=== PATIENT | male | born 1995 | race Caucasian/White ===

== ENCOUNTER 2017-05-24 04:24 | Emergency (ER) | payer MEDICAID ==
[~2017-05-24] VITALS: Ht 185.4 cm; Wt 92.7 kg
[~2017-05-24 04:24] MED LIST: ALBU8.5H8 IH; GUAN1TAB16 PO
[2017-05-24 06:18] LABS: CLARITY,URINE CLEAR (Clear); COLOR,URINE YELLOW (Yellow); GLUCOSE, URINE NEGATIVE (Neg); KETONES,URINE NEGATIVE (Neg); LEUKOCYTE ESTERASE ,URINE NEGATIVE (Neg); NITRITES, URINE NEGATIVE (Neg); OCCULT BLOOD,URINE NEGATIVE (Neg); PH,URINE 5.5 (4.8-8.0); PROTEIN,URINE NEGATIVE (Neg); UROBILINOGEN,URINE 0.2 E.U/dL (0.2-1.0)
[2017-05-24 06:47] LABS: UA COLLECTION TYPE CLN CATCH MIDSTREAM
[2017-05-24 07:02] VITALS: BP 121/68
[2017-05-25] MEDS ORDERED: DOXY100C43 PO (11:07)
== END 2017-05-24 07:03 | disposition home or self-care (01) ==
LOC: ER 04:24
DX: N48.89 Other specified disorders of penis (principal); I10 Essential (primary) hypertension; F12.10 Cannabis abuse, uncomplicated; Z79.899 Other long term (current) drug therapy
CPT/HCPCS: 76870; 81003; 99285

== ENCOUNTER 2017-05-25 10:26 | Emergency (ER) | payer MEDICAID ==
[~2017-05-25] VITALS: Ht 185.4 cm; Wt 100.0 kg
[2017-05-25 10:30] VITALS: BP 138/68
[2017-05-25] MEDS ORDERED: DOXY100C43 PO (11:07)
[2017-05-25] MEDS ORDERED: CefTRIAXone 250MG inj IM ONE (11:10)
[2017-05-25] MEDS ORDERED: CefTRIAXone 250MG IM Kit w/LIDOcaine IM ONE (11:15)
== END 2017-05-25 11:45 | disposition home or self-care (01) ==
LOC: ER 10:26
DX: S30.22XA Contusion of scrotum and testes, initial encounter (principal); N45.1 Epididymitis; I10 Essential (primary) hypertension; F12.10 Cannabis abuse, uncomplicated; X58.XXXA Exposure to other specified factors, initial encounter; Y93.89 Activity, other specified; Y92.89 Other specified places as the place of occurrence of the external cause; Y99.8 Other external cause status
CPT/HCPCS: 76870; 96372; 99284; J0696

== ENCOUNTER 2017-08-29 10:37 | Emergency (ER) | payer MEDICAID ==
[~2017-08-29] VITALS: Ht 185.4 cm; Wt 91.0 kg
[2017-08-29 10:43] VITALS: BP 138/67
[2017-08-29] MEDS ORDERED: azithromycin 250mg tablet PO ONE (11:05)
[2017-08-29] MEDS ORDERED: CefTRIAXone 1000mg IM Kit (w/lidocaine diluent) IM ONE (11:05)
== END 2017-08-29 11:42 | disposition home or self-care (01) ==
LOC: ER 10:37
DX: A64 Unspecified sexually transmitted disease (principal); I10 Essential (primary) hypertension; F12.90 Cannabis use, unspecified, uncomplicated; Z79.899 Other long term (current) drug therapy
CPT/HCPCS: 36415; 87491; 87591; 96372; 99284; J0696; 99283

== ENCOUNTER 2017-10-16 08:53 | Emergency (ER) | payer MEDICAID ==
[~2017-10-16] VITALS: Ht 190.5 cm; Wt 86.0 kg
[2017-10-16 10:18] VITALS: BP 132/70
== END 2017-10-16 10:20 | disposition home or self-care (01) ==
LOC: ER 08:54
DX: R20.2 Paresthesia of skin (principal); R07.89 Other chest pain; R20.0 Anesthesia of skin; I10 Essential (primary) hypertension; F12.90 Cannabis use, unspecified, uncomplicated; F15.90 Other stimulant use, unspecified, uncomplicated; Z79.899 Other long term (current) drug therapy
CPT/HCPCS: 93005; 99283

== ENCOUNTER 2018-02-14 03:26 | Emergency (ER) | payer MEDICAID | END 2018-02-14 03:43 | disposition left against medical advice (07) | LOC: ER 03:27 | DX: Z11.3 Encounter for screening for infections with a predominantly sexual mode of transmission (principal); Z53.21 Procedure and treatment not carried out due to patient leaving prior to being seen by health care provider ==

== ENCOUNTER 2018-10-20 22:44 | Emergency (ER) | payer MEDICAID ==
[~2018-10-20] VITALS: Ht 182.9 cm; Wt 93.2 kg
[2018-10-20 23:41] LABS: BASOPHILS # (AUTO) 0.1 X10'3 (0-0.2); BASOPHILS % (AUTO) 0.9 % (0-1); EOSINOPHILS # (AUTO) 0.3 X10'3 (0-0.9); EOSINOPHILS % (AUTO) 4.1 % (0-6); HEMATOCRIT 40.8 % (42.0-52.0); LYMPHOCYTES # (AUTO) 2.1 X10'3 (1.1-4.8); LYMPHOCYTES % (AUTO) 31.1 % (21-51); MEAN CORPUSCULAR HEMOGLOBIN 32.5 PG (27.0-31.0); MEAN CORPUSCULAR HGB CONC 34.5 g/dL (33.0-36.5); MEAN CORPUSCULAR VOLUME 94.3 FL (78-98); MEAN PLATELET VOLUME 7.1 FL (7.4-10.4); MONOCYTES % (AUTO) 14.6 % (2-12); NEUTROPHILS # (AUTO) 3.3 X10'3 (1.8-7.7); NEUTROPHILS % (AUTO) 49.3 % (42-75); PLATELET COUNT 230 X10'3 (140-440); RED BLOOD COUNT 4.32 X10'6 (4.70-6.10); WHITE BLOOD COUNT 6.7 X10'3 (4.5-11.0)
[2018-10-20 23:42] LABS: CLARITY,URINE CLEAR (Clear); COLOR,URINE YELLOW (Yellow); GLUCOSE, URINE NEGATIVE (Neg); KETONES,URINE TRACE mg/dl (Neg); LEUKOCYTE ESTERASE ,URINE NEGATIVE (Neg); NITRITES, URINE NEGATIVE (Neg); OCCULT BLOOD,URINE NEGATIVE (Neg); PROTEIN,URINE TRACE mg/dl (Neg); UROBILINOGEN,URINE 0.2 E.U/dL (0.2-1.0)
[2018-10-20 23:43] LABS: UA COLLECTION TYPE VOIDED
[2018-10-20 23:48] LABS: RBC,URINE NONE SEEN /HPF (0-2); WBC,URINE 0-4 /HPF (0-4)
[2018-10-20 23:49] LABS: BACTERIA,URINE NONE SEEN /HPF (Neg); HYALINE CASTS 0-3 /LPF (NEGATIVE); MUCUS STRANDS MODERATE /LPF (Neg); SQUAMOUS EPITHELIAL CELL,UR FEW /LPF (FEW); TRANSITIONAL EPI CELLS,URINE FEW /HPF
[2018-10-20 23:58] LABS: ALANINE AMINOTRANSFERASE 28 U/L (12-78); ALBUMIN 3.8 G/DL (3.4-5.0); ALBUMIN/GLOBULIN RATIO 1.2 (1.1-1.5); ALKALINE PHOSPHATASE 106 IU/L (46-116); ANION GAP 5 (8-16); ASPARTATE AMINO TRANSFERASE 15 U/L (10-37); BILIRUBIN,TOTAL 0.3 MG/DL (0.1-1.0); BLOOD UREA NITROGEN 11 MG/DL (7-18); BUN/CREATININE RATIO 10.3 (5.4-32.0); CALCIUM 8.2 MG/DL (8.5-10.1); CHLORIDE 106 MMOL/L (99-107); CREATININE 1.07 MG/DL (0.60-1.10); GLUCOSE 123 MG/DL (70-104); POTASSIUM 3.7 MMOL/L (3.5-5.1); SODIUM 142 MMOL/L (135-145); TOTAL CARBON DIOXIDE 31.1 MMOL/L (24-32); TOTAL PROTEIN 6.9 G/DL (6.4-8.2); eGFR 85 ML/MIN
[2018-10-21 00:21] VITALS: BP 118/62
--- NOTE | 2018-10-21 00:22 | NUR ---
Returned from ct, labs drawn and ua collected. pt with 8 out of 10 pain to periumbilical area. stable vs. girlfriend at bedside.
--- NOTE | 2018-10-21 01:33 | NUR ---
DR. GRIFFITH AT BEDSIDE, REPORTS HE IS WAITING FOR THE CT READ.
== END 2018-10-21 01:54 | disposition home or self-care (01) ==
LOC: ER 22:44
DX: R10.84 Generalized abdominal pain (principal); R19.7 Diarrhea, unspecified; I10 Essential (primary) hypertension; F32.9 Major depressive disorder, single episode, unspecified; F17.200 Nicotine dependence, unspecified, uncomplicated; F10.99 Alcohol use, unspecified with unspecified alcohol-induced disorder; F12.90 Cannabis use, unspecified, uncomplicated; Z79.899 Other long term (current) drug therapy; Y90.9 Presence of alcohol in blood, level not specified
CPT/HCPCS: 36415; 74176; 80053; 81001; 85025; 85610; 99284

== ENCOUNTER 2018-10-27 12:52 | Emergency (ER) | payer MEDICAID ==
[~2018-10-27] VITALS: Ht 182.9 cm; Wt 86.0 kg
[2018-10-27 12:56] VITALS: BP 124/64
== END 2018-10-27 14:49 | disposition home or self-care (01) ==
LOC: ER 12:53
DX: R20.2 Paresthesia of skin (principal); I10 Essential (primary) hypertension; F12.90 Cannabis use, unspecified, uncomplicated; F17.210 Nicotine dependence, cigarettes, uncomplicated
CPT/HCPCS: 99281

== ENCOUNTER 2018-11-09 19:51 | Emergency (ER) | payer MEDICAID ==
[~2018-11-09] VITALS: Ht 182.9 cm; Wt 88.0 kg
[2018-11-09] MEDS ORDERED: HYDR25SU32 RC (21:37)
[2018-11-09] MEDS ORDERED: DOCU-169 PO (21:37)
[2018-11-09 21:39] VITALS: BP 125/85
== END 2018-11-09 21:46 | disposition home or self-care (01) ==
LOC: ER 19:51
DX: K92.2 Gastrointestinal hemorrhage, unspecified (principal); I10 Essential (primary) hypertension; F32.9 Major depressive disorder, single episode, unspecified; F17.200 Nicotine dependence, unspecified, uncomplicated; F12.90 Cannabis use, unspecified, uncomplicated; F11.90 Opioid use, unspecified, uncomplicated; Z79.899 Other long term (current) drug therapy
CPT/HCPCS: 99283

== ENCOUNTER 2019-05-06 07:06 | Emergency (ER) | payer MEDICAID, OTHER ==
[~2019-05-06] VITALS: Ht 185.4 cm; Wt 90.9 kg
[~2019-05-06 07:06] MED LIST changes: +DOCU-169 PO; +HYDR25SU32 RC
[2019-05-06 07:21] VITALS: BP 148/80
[2019-05-06] MEDS ORDERED: LIDOcaine 1% W/epiNEPHrine 1:200,000 10ml vial IJ ONE (07:30)
[2019-05-06] MEDS ORDERED: TETanus/Pertussis (Acell)/Diphther VAC/PF (Tdap-Adult) 0.5ml syringe IMVAC ONE (07:30)
[2019-05-06] MEDS ORDERED: CEPH-572 PO (09:05)
== END 2019-05-06 09:56 | disposition home or self-care (01) ==
LOC: ER 07:08
DX: S61.220A Laceration with foreign body of right index finger without damage to nail, initial encounter (principal); S61.210A Laceration without foreign body of right index finger without damage to nail, initial encounter; I10 Essential (primary) hypertension; F32.9 Major depressive disorder, single episode, unspecified; F12.90 Cannabis use, unspecified, uncomplicated; Z79.2 Long term (current) use of antibiotics; Z79.899 Other long term (current) drug therapy; W26.8XXA Contact with other sharp object(s), not elsewhere classified, initial encounter; Y93.89 Activity, other specified; Y92.89 Other specified places as the place of occurrence of the external cause; Y99.8 Other external cause status
CPT/HCPCS: 12001; 12041; 73130; 99285

== ENCOUNTER 2019-05-20 09:30 | Emergency (ER) | payer MEDICAID, OTHER ==
[~2019-05-20] VITALS: Ht 185.4 cm; Wt 90.9 kg
[2019-05-20 12:03] VITALS: BP 130/79
== END 2019-05-20 12:07 | disposition home or self-care (01) ==
LOC: ER 09:31
DX: S61.220D Laceration with foreign body of right index finger without damage to nail, subsequent encounter (principal); S61.210D Laceration without foreign body of right index finger without damage to nail, subsequent encounter; I10 Essential (primary) hypertension; F32.9 Major depressive disorder, single episode, unspecified; F12.90 Cannabis use, unspecified, uncomplicated; Z79.899 Other long term (current) drug therapy; W26.8XXD Contact with other sharp object(s), not elsewhere classified, subsequent encounter
CPT/HCPCS: 99281

== ENCOUNTER 2019-06-29 07:04 | Emergency (ER) | payer MEDICAID, OTHER ==
[~2019-06-29] VITALS: Ht 185.4 cm; Wt 90.9 kg
[2019-06-29 07:05] VITALS: BP 163/96
== END 2019-06-29 07:34 | disposition home or self-care (01) ==
LOC: ER 07:05
DX: F11.90 Opioid use, unspecified, uncomplicated (principal); I10 Essential (primary) hypertension; F32.9 Major depressive disorder, single episode, unspecified; F12.90 Cannabis use, unspecified, uncomplicated; Z79.899 Other long term (current) drug therapy
CPT/HCPCS: 99281

== ENCOUNTER 2019-08-18 19:30 | Emergency (ER) | payer MEDICAID, OTHER ==
[~2019-08-18] VITALS: Ht 185.4 cm; Wt 201.0 kg
[2019-08-18 19:47] VITALS: BP 146/88
--- NOTE | 2019-08-18 20:02 | NUR ---
He is here for medical clearance to go to a rehab facility and has no medical complaints. He is a heroin user.
== END 2019-08-18 20:12 | disposition home or self-care (01) ==
LOC: ER 19:31
DX: F11.10 Opioid abuse, uncomplicated (principal); Z00.8 Encounter for other general examination
CPT/HCPCS: 99281

== ENCOUNTER 2019-08-22 15:33 | Emergency (ER) | payer MEDICAID, OTHER ==
[~2019-08-22] VITALS: Ht 185.4 cm; Wt 92.0 kg
[2019-08-22 15:41] VITALS: BP 167/96
== END 2019-08-22 16:06 | disposition home or self-care (01) ==
LOC: ER 15:33
DX: F11.90 Opioid use, unspecified, uncomplicated (principal); I10 Essential (primary) hypertension; F32.9 Major depressive disorder, single episode, unspecified; F12.90 Cannabis use, unspecified, uncomplicated; Z00.00 Encounter for general adult medical examination without abnormal findings; Z79.899 Other long term (current) drug therapy
CPT/HCPCS: 99281

== ENCOUNTER 2019-10-25 07:18 | Emergency (ER) | payer OTHER ==
[~2019-10-25] VITALS: Ht 185.4 cm; Wt 90.9 kg
[2019-10-25] MEDS ORDERED: ketorolac trometh. 30mg/ml inj. IV ONE (07:30)
[2019-10-25] MEDS ORDERED: acetaminophen 325mg tablet PO ONE (07:30)
[2019-10-25] MEDS ORDERED: SUMAtriptan succ. 6 MG/0.5ml vial SQ ONE ×2 (07:30→07:34)
[2019-10-25] MEDS ORDERED: proCHLORperazine 10 MG/2 ml inj IV ONE (07:30)
[2019-10-25] MEDS ORDERED: normal saline 1000ml 1,000 ML IV ONE (07:30)
[2019-10-25] MEDS ORDERED: ketorolac tromethamine 15mg/ml inj. ONE (07:34)
[2019-10-25] MEDS ORDERED: proCHLORperazine 10 MG/2 ml inj ONE (07:34)
[2019-10-25] MEDS ORDERED: acetaminophen 325mg tablet ONE (07:34)
[2019-10-25] MEDS ORDERED: ketorolac tromethamine 15mg/ml inj. IV ONE (07:50)
--- NOTE | 2019-10-25 08:30 | NUR ---
SPOKE WITH PT'S GIRLFRIEND, SHE GAVE ME HER HOME NUMBER [phone] TO CALL WHEN PT IS UP FOR D/C.
[2019-10-25 08:43] VITALS: BP 122/79
== END 2019-10-25 09:11 | disposition home or self-care (01) ==
LOC: ER 07:18
DX: R51 Headache (principal); I10 Essential (primary) hypertension; H53.149 Visual discomfort, unspecified; F32.9 Major depressive disorder, single episode, unspecified; F12.90 Cannabis use, unspecified, uncomplicated; F11.90 Opioid use, unspecified, uncomplicated; Z79.899 Other long term (current) drug therapy
CPT/HCPCS: 96361; 96372; 96374; 96375; 99284; J0780; J1885; J7030; J3030

== ENCOUNTER 2020-10-06 03:30 | Emergency (ER) | payer MEDICAID, OTHER ==
[~2020-10-06] VITALS: Ht 185.4 cm; Wt 95.5 kg
[~2020-10-06 03:30] MED LIST changes: +ALBU8.5H17 IH; -ALBU8.5H8 IH
[2020-10-06 04:37] LABS: BASOPHILS # (AUTO) 0.1 X10'3 (0-0.2); EOSINOPHILS # (AUTO) 0.1 X10'3 (0-0.9); HEMOGLOBIN 13.6 g/dl (14.0-17.9); MEAN CORPUSCULAR HEMOGLOBIN 31.3 PG (27.0-31.0); MEAN CORPUSCULAR HGB CONC 33.6 g/dL (33.0-36.5); NEUTROPHILS # (AUTO) 6.6 X10'3 (1.8-7.7); RED CELL DISTRIBUTION WIDTH 14.3 % (11.5-14.5); WHITE BLOOD COUNT 9.2 X10'3 (4.5-11.0)
[2020-10-06 04:39] LABS: BASOPHILS % (AUTO) 0.8 % (0-1); EOSINOPHILS % (AUTO) 1.4 % (0-6); HEMATOCRIT 40.6 % (42.0-52.0); LYMPHOCYTES # (AUTO) 1.2 X10'3 (1.1-4.8); LYMPHOCYTES % (AUTO) 13.3 % (21-51); MEAN CORPUSCULAR VOLUME 93.3 FL (78-98); MEAN PLATELET VOLUME 7.6 FL (7.4-10.4); MONOCYTES # (AUTO) 1.2 X10'3 (0-0.9); MONOCYTES % (AUTO) 13.4 % (2-12); NEUTROPHILS % (AUTO) 71.1 % (42-75); PLATELET COUNT 345 X10'3 (140-440); RED BLOOD COUNT 4.35 X10'6 (4.70-6.10)
[2020-10-06 04:41] LABS: ALBUMIN 3.8 G/DL (3.4-5.0); ANION GAP 6 (8-16); BLOOD UREA NITROGEN 10 MG/DL (7-18); BUN/CREATININE RATIO 10.4 (5.4-32.0); CALCIUM 8.7 MG/DL (8.5-10.1); CHLORIDE 101 MMOL/L (99-107); CREATININE 0.96 MG/DL (0.60-1.10); GLUCOSE 98 MG/DL (70-104); POTASSIUM 3.6 MMOL/L (3.5-5.1); SODIUM 139 MMOL/L (135-145); TOTAL CARBON DIOXIDE 31.8 MMOL/L (24-32); eGFR > 90 ML/MIN
[2020-10-06 04:44] LABS: PARTIAL THROMBOPLASTIN TIME 35 SECONDS (22-32)
[2020-10-06] MEDS ORDERED: CLIN300C54 PO (04:52)
[2020-10-06] MEDS ORDERED: clindamycin 150mg capsule PO ONE (05:05)
[2020-10-06 05:21] VITALS: BP 134/74
== END 2020-10-06 05:22 | disposition home or self-care (01) ==
LOC: ER 03:30
DX: L03.115 Cellulitis of right lower limb (principal); R20.2 Paresthesia of skin; I10 Essential (primary) hypertension; F17.200 Nicotine dependence, unspecified, uncomplicated; Z87.01 Personal history of pneumonia (recurrent); Z79.899 Other long term (current) drug therapy
CPT/HCPCS: 73610; 80048; 85025; 85610; 85730; 93971; 99285

== ENCOUNTER 2022-09-25 22:04 | Inpatient (IN) | payer MEDICAID, OTHER ==
[~2022-09-25] VITALS: Ht 182.9 cm; Wt 88.6 kg
[2022-09-25] MEDS ORDERED: vancomycin/NS 1 GM ADD-VANTAGE 250 ML IV ONE (22:35)
[2022-09-25] MEDS ORDERED: normal saline 1000ML IV soln IVB ONE ×2 (22:35)
[2022-09-25] MEDS ORDERED: piperacillin/tazo 3.375gm/50ml 50 ML IV ONE (22:35)
[2022-09-25] MEDS ORDERED: acetaminophen 325mg tablet PO ONE (22:35)
[2022-09-25] MEDS ORDERED: iohexol 300mg/ml 100ml inj. ONE (22:53)
[2022-09-26 00:28] LABS: BASOPHILS # (AUTO) 0.2 X10'3 (0-0.2); BASOPHILS % (AUTO) 0.5 % (0-1); EOSINOPHILS % (AUTO) 0.1 % (0-6); HEMATOCRIT 37.1 % (42.0-52.0); HEMOGLOBIN 12.4 g/dl (14.0-17.9); LYMPHOCYTES # (AUTO) 1.4 X10'3 (1.1-4.8); LYMPHOCYTES % (AUTO) 3.8 % (21-51); MEAN CORPUSCULAR HEMOGLOBIN 30.5 PG (27.0-31.0); MEAN CORPUSCULAR HGB CONC 33.5 g/dL (33.0-36.5); MEAN CORPUSCULAR VOLUME 90.9 FL (78-98); MEAN PLATELET VOLUME 7.7 FL (7.4-10.4); MONOCYTES # (AUTO) 2.5 X10'3 (0-0.9); MONOCYTES % (AUTO) 6.9 % (2-12); NEUTROPHILS # (AUTO) 32.7 X10'3 (1.8-7.7); NEUTROPHILS % (AUTO) 88.7 % (42-75); PLATELET COUNT 435 X10'3 (140-440); RED BLOOD COUNT 4.08 X10'6 (4.70-6.10); RED CELL DISTRIBUTION WIDTH 13.8 % (11.5-14.5)
[2022-09-26 00:32] LABS: WHITE BLOOD COUNT 36.8 X10'3 (4.5-11.0)
[2022-09-26 01:04] LABS: ALANINE AMINOTRANSFERASE 35 U/L (12-78); ALBUMIN 2.9 G/DL (3.4-5.0); ALBUMIN/GLOBULIN RATIO 0.5 (1.1-1.5); ALKALINE PHOSPHATASE 127 IU/L (46-116); ANION GAP 14 (8-16); ASPARTATE AMINO TRANSFERASE 39 U/L (10-37); BILIRUBIN,TOTAL 0.6 MG/DL (0.1-1.0); BLOOD UREA NITROGEN 21 MG/DL (7-18); BUN/CREATININE RATIO 16.8 (10.0-20.0); CALCIUM 9.4 MG/DL (8.5-10.1); CHLORIDE 94 MMOL/L (99-107); CREATININE 1.25 MG/DL (0.60-1.10); GLUCOSE 106 MG/DL (70-104); POTASSIUM 3.4 MMOL/L (3.5-5.1); SODIUM 134 MMOL/L (135-145); TOTAL CARBON DIOXIDE 26.4 MMOL/L (24-32); eGFR 69 ML/MIN
[2022-09-26] MEDS ORDERED: potassium Cl 20 mEq SR tablet PO PRN ×2 (01:25)
[2022-09-26] MEDS ORDERED: HYDROcodone/acetaminophen 5mg/325mg tablet PO PRN (01:25)
[2022-09-26] MEDS ORDERED: magnesium Cl slow-release 64mg tablet PO PRN (01:25)
[2022-09-26] MEDS ORDERED: potassium Cl 40MEQ/1/2NS 520ml 520 ML IV PRN (01:25)
[2022-09-26] MEDS ORDERED: ondansetron/PF 4mg/2ml inj IV PRN (01:25)
[2022-09-26] MEDS ORDERED: magnesium 2GM in 50ml NS 50 ML IV PRN (01:25)
[2022-09-26] MEDS ORDERED: acetaminophen 325mg tablet PO PRN (01:25)
[2022-09-26] MEDS ORDERED: magnesium 4gm in 100ml NS 100 ML IV PRN (01:25)
[2022-09-26] MEDS ORDERED: morphine 2 MG/ML inj. syringe IV PRN (01:25)
[2022-09-26 01:34] LABS: TOTAL CELLS COUNTED 100
[2022-09-26 01:47] LABS: PLATELET ESTIMATE NORMAL; TOXIC GRANULATION 2+; TOXIC VACUOLATION 1+
[2022-09-26 01:48] LABS: LARGE PLATELETS FEW
[2022-09-26] MEDS: normal saline 1000ml 1,000 ML IV SCH ×3 (02:20→17:12)
[2022-09-26] MEDS ORDERED: vancomycin/NS 1 GM ADD-VANTAGE 250 ML X 1 DOSE IV ONE (02:30)
[2022-09-26 03:15] LABS: MAGNESIUM 2.3 MG/DL (1.5-2.4); POTASSIUM 3.8 MMOL/L (3.5-5.1)
[2022-09-26] MEDS: cefepime 2g/NS 100ml ADVANTAGE 100 ML IV SCH ×2 (04:18→15:44)
[2022-09-26 05:23] VITALS: BP 136/92; PULSE 89; RESP 18; TEMP 98.6; O2SAT 96
[2022-09-26 06:00] VITALS: BP 130/73; PULSE 88; RESP 16; TEMP 99.9; O2SAT 94
[2022-09-26] MEDS: K and/or MAG REPLACEMENT MC SCH ×2 (08:00→20:00)
[2022-09-26] MEDS: heparin, porcine 5000 units/ml vial SQ SCH ×2 (08:24→19:39)
[2022-09-26] MEDS: VANCOmycin 1250MG/NS 250ml Bag 250 ML IV SCH ×2 (10:43→23:17)
[2022-09-26] MEDS ORDERED: NO HOME MEDS (10:52)
[2022-09-26 11:09] VITALS: BP 115/58; PULSE 82; RESP 20; TEMP 97.6; O2SAT 96
[2022-09-26] MEDS ORDERED: CLINDAMYCIN 600mg IN NS 50ML 50 ML IV SCH (13:09)
[2022-09-26] MEDS ORDERED: clindamycin 600mg/D5W 50ml 50 ML IV ONE (13:15)
[2022-09-26 15:14] VITALS: BP 147/84; PULSE 82; RESP 15; TEMP 98.7; O2SAT 93
--- NOTE | 2022-09-26 17:03 | NUR ---
To Dr Diana: Natalie, [facility] [address], L 4531U Positive blood culture: gram + Cocci and clusters.
[2022-09-26 18:11] LABS: CLARITY,URINE CLEAR (Clear); COLOR,URINE YELLOW (Yellow); GLUCOSE, URINE NEGATIVE (Neg); KETONES,URINE 15 mg/dl (Neg); LEUKOCYTE ESTERASE ,URINE NEGATIVE (Neg); NITRITES, URINE NEGATIVE (Neg); OCCULT BLOOD,URINE NEGATIVE (Neg); PROTEIN,URINE TRACE mg/dl (Neg)
--- NOTE | 2022-09-26 18:15 | NUR ---
Report given to Nieves MUSE, pt sleeps a lot, getting abx, wakes occasionally and yells when pump beeps occasionally to get attention from staff instead of pushing call light. Addendum: 09/26/22 at 1820 by Natalie Madrigal RN, RN Patient passed off to Sylvia XIAO, not Nieves MUSE
--- NOTE | 2022-09-26 18:21 | NUR ---
Patient report given to Sylvia XIAO, not Nieves XIAO
[2022-09-26 18:25] LABS: UA COLLECTION TYPE NON-SPECIFIED
[2022-09-26 18:26] LABS: WBC,URINE 0-4 /HPF (0-4)
[2022-09-26 18:27] LABS: BACTERIA,URINE FEW /HPF (Neg); MUCUS STRANDS MODERATE /LPF (Neg); SQUAMOUS EPITHELIAL CELL,UR FEW /LPF (FEW)
[2022-09-26 18:28] LABS: AMORPHOUS URATES 1+
[2022-09-26 18:41] LABS: RBC,URINE 0-2 /HPF (0-2)
[2022-09-26 18:42] LABS: URINE AMPHETAMINE SCREEN POSITIVE (Neg); URINE BARBITUATE SCREEN NEGATIVE (Neg); URINE BENZODIAZEPINES SCREEN NEGATIVE (Neg); URINE CANNABINOID SCREEN NEGATIVE (Neg); URINE COCAINE SCREEN NEGATIVE (Neg); URINE METHADONE SCREEN NEGATIVE (Neg); URINE OPIATE SCREEN NEGATIVE (Neg); URINE PHENCYCLIDINE SCREEN NEGATIVE (Neg)
--- NOTE | 2022-09-26 18:52 | NUR ---
Patient in room PCU 3024. I have received report from VIJAYA XIAO and had the opportunity to ask questions and assume patient care.
[2022-09-26] MEDS: clindamycin 600mg/D5W 50ml 50 ML IV SCH (19:38)
[2022-09-26 20:00] VITALS: RESP 21; O2SAT 94
[2022-09-27] VITALS (10 sets, daily range): BP systolic 123–170; BP diastolic 71–86; PULSE 56–111; RESP 14–20; TEMP 97–98.4; O2SAT 92–100
[2022-09-27] MEDS: clindamycin 600mg/D5W 50ml 50 ML IV SCH ×4 (02:36→20:59)
--- NOTE | 2022-09-27 04:47 | NUR ---
2229 PATIENT HAD BEEN INCONTINENT OF URINE, BATHED AND LINEN CHANGED, VERY DROWSY, BUT FOLLOWED DIRECTIONS WITH FREQUENT REQUESTS.
[2022-09-27] MEDS: cefepime 2g/NS 100ml ADVANTAGE 100 ML IV SCH ×2 (05:10→15:51)
[2022-09-27] MEDS ORDERED: LORazepam 2 mg/ml vial IV PRN (06:00)
--- NOTE | 2022-09-27 06:14 | NUR ---
Patient in room PCU 3024. I have received report from VIJAYA XIAO and had the opportunity to ask questions and assume patient care.
[2022-09-27 06:30] LABS: BASOPHILS # (AUTO) 0.1 X10'3 (0-0.2); BASOPHILS % (AUTO) 0.2 % (0-1); EOSINOPHILS % (AUTO) 0 % (0-6); HEMATOCRIT 38.8 % (42.0-52.0); HEMOGLOBIN 12.9 g/dl (14.0-17.9); LYMPHOCYTES # (AUTO) 1.1 X10'3 (1.1-4.8); LYMPHOCYTES % (AUTO) 3.3 % (21-51); MEAN CORPUSCULAR HEMOGLOBIN 30.3 PG (27.0-31.0); MEAN CORPUSCULAR HGB CONC 33.2 g/dL (33.0-36.5); MEAN CORPUSCULAR VOLUME 91.4 FL (78-98); MEAN PLATELET VOLUME 7.6 FL (7.4-10.4); NEUTROPHILS # (AUTO) 29.5 X10'3 (1.8-7.7); NEUTROPHILS % (AUTO) 93.5 % (42-75); PLATELET COUNT 450 X10'3 (140-440); RED BLOOD COUNT 4.24 X10'6 (4.70-6.10); RED CELL DISTRIBUTION WIDTH 13.6 % (11.5-14.5)
[2022-09-27 06:46] LABS: WHITE BLOOD COUNT 31.5 X10'3 (4.5-11.0)
--- NOTE | 2022-09-27 06:53 | NUR ---
WBC'S TRENDING DOWN 31.5
[2022-09-27] MEDS: heparin, porcine 5000 units/ml vial SQ SCH ×2 (06:55→20:46)
--- NOTE | 2022-09-27 07:12 | NUR ---
Dr Fishman notified of wbc's and last nights withdrawl issues of vomiting and jerking movements. 1mg of ativan given. He will look over chart and get back to me about best course of action for withdrawl.
[2022-09-27 07:32] LABS: ALANINE AMINOTRANSFERASE 26 U/L (12-78); ALBUMIN 2.2 G/DL (3.4-5.0); ALBUMIN/GLOBULIN RATIO 0.4 (1.1-1.5); ALKALINE PHOSPHATASE 116 IU/L (46-116); ANION GAP 11 (8-16); ASPARTATE AMINO TRANSFERASE 29 U/L (10-37); BILIRUBIN,TOTAL 0.5 MG/DL (0.1-1.0); BLOOD UREA NITROGEN 14 MG/DL (7-18); BUN/CREATININE RATIO 16.7 (10.0-20.0); CALCIUM 8.2 MG/DL (8.5-10.1); CHLORIDE 100 MMOL/L (99-107); CREATININE 0.84 MG/DL (0.60-1.10); GLUCOSE 115 MG/DL (70-104); MAGNESIUM 2.3 MG/DL (1.5-2.4); POTASSIUM 3.6 MMOL/L (3.5-5.1); SODIUM 136 MMOL/L (135-145); TOTAL CARBON DIOXIDE 25.4 MMOL/L (24-32); TOTAL PROTEIN 7.7 G/DL (6.4-8.2); eGFR > 90 ML/MIN
[2022-09-27 07:50] LABS: PLATELET ESTIMATE NORMAL; TOTAL CELLS COUNTED 100
[2022-09-27 07:51] LABS: TOXIC GRANULATION 1+
[2022-09-27] MEDS: K and/or MAG REPLACEMENT MC SCH ×2 (08:00→20:00)
[2022-09-27] MEDS: normal saline 1000ml 1,000 ML IV SCH (08:59)
--- NOTE | 2022-09-27 09:01 | NUR ---
DR LEVI SAW PT, HE IS AWARE PATIENT HAS HAD AM HEPARIN AND HAS BEEN VOMITING LIKELY DUE TO WITHDRAWLING FROM DRUGS. HE IS PLANNING ON TAKING PATIENT DOWN TO OR WITHIN NEXT COUPLE HOURS.
[2022-09-27] MEDS ORDERED: sevoflurane 250ml liquid IH ONE (09:42)
[2022-09-27] MEDS ORDERED: fentaNYL/PF 50MCG/1 ML 2ML syringe ONE (09:45)
[2022-09-27] MEDS ORDERED: midazolam 1 mg/ML 2ml injection ONE (09:45)
--- NOTE | 2022-09-27 09:58 | NUR ---
attempted to call OR charge and recovery to give report, no answer.
[2022-09-27] MEDS ORDERED: vancomycin 1,000mg inj ONE (10:00)
[2022-09-27] MEDS ORDERED: morphine 10mg/ml inj. ONE ×2 (10:06→10:07)
[2022-09-27] MEDS ORDERED: propofol inj 20 ML IV ONE (10:15)
[2022-09-27] MEDS ORDERED: dexamethasone sod phosphate 4mg/ml inj. ONE (10:15)
[2022-09-27] MEDS ORDERED: LIDOcaine 2% (20mg/ml) 5ml vial ONE (10:15)
[2022-09-27] MEDS ORDERED: ondansetron/PF 4mg/2ml inj ONE (10:16)
[2022-09-27] MEDS ORDERED: ketorolac trometh. 30mg/ml inj. IV ONE (10:30)
[2022-09-27] MEDS ORDERED: ondansetron/PF 4mg/2ml inj IV PRN (10:30)
[2022-09-27] MEDS ORDERED: morphine 2 MG/ML inj. syringe IV PRN (10:30)
[2022-09-27] MEDS ORDERED: meperidine/PF 25mg/ml syringe IV PRN ×2 (10:30)
[2022-09-27] MEDS ORDERED: morphine 4 MG/ML inj SYRINge IV PRN (10:30)
[2022-09-27] MEDS ORDERED: acetaminophen 1,000mg/100ml IV 100 ML IV PRN (10:30)
[2022-09-27] MEDS ORDERED: ringers solution, lacted 1,000 ML IV SCH (10:30)
[2022-09-27] MEDS ORDERED: proCHLORperazine 10 MG/2 ml inj IV PRN (10:30)
--- NOTE | 2022-09-27 10:34 | NUR ---
Received from OR via SURGICAL BED , accompanied by Anesthesiologist DR RICHARDSON and report given by Anesthesiolgist. PT FLAILING AND CURSING OUT. PT THRASHING AROUND AND SCREAMING. CALLING IN SECURITY AND WILL MEDICATE PRN.
[2022-09-27] MEDS ORDERED: meperidine/PF 50mg/ml syringe ONE (10:35)
[2022-09-27] MEDS ORDERED: LORazepam 2 mg/ml vial IV ONE (10:40)
--- NOTE | 2022-09-27 10:45 | NUR ---
PT CONTINUES TO CURSE AND THREATEN STAFF TO SHOOT THEM AND HIT THEM. STATES HE NEEDS HIS "BUMP" AND NEEDS TO GET HIS DEALER. YELLING FOR A DRINK. KICKING AROUND AND SWINGING ARMS PULLING AT LINES. TORE OFF HIS GOWN, ALSO ATTEMPTED TO BITE STAFF. SOFT WRIST RESTRAINS ORDERED BY DR RICHARDSON AND APPLIED AT THIS TIME.
--- NOTE | 2022-09-27 10:54 | NUR ---
PT CONSISTENTLY YELLING OUT CURSE WORDS AND THRASHING AROUND IN BED AND VERY AGITATED. ATIVAN WAS ADMINISTERED EARLIER, ATTEMPTING CALMING MEASURES W/ WARM BLANKET ETC. CONTINUING TO MONITOR PT.
[2022-09-27] MEDS: meperidine/PF 25mg/ml syringe IV PRN ×2 (11:01→11:09)
--- NOTE | 2022-09-27 11:24 | NUR ---
SECURITY REMAINED AT BEDSIDE IN PACU FOR PT AND STAFF SAFETY. SECURITY AWARE PT TRANSFERRING TO FLOOR AND WILL BE AVAILABLE NEEDED. NSG SUP ALSO AWARE PT MAY NEED SITTER IF CONTINUES TO BE NON COMPLIANT AND A HAZARD TO THEMSELVES AND OTHERS. PT TO FLOOR ROOM 3024 B , ON TELE NUMBER [id number]. REPORT GIVEN TO VIJAYA XIAO WHO IS AT BEDSIDE. PT ORIENTED TO ROOM AND CALL LIGHT. BED LOW, LOCKED, RAILS UP X 2. PT REMIANS AGITATED AND FLAILING AND ATTEMPTING TO CLIMB OUT OF BED AND CURSING AT STAFF. PT BROKE FOOT BOARD OF BED WITH KICKING AND PUSHING, VISIBLE CRACK IN FOOTBOARD. CRACK COVERED W/ BLANKET FOR SAFETY. PT STILL REMAINS IN SOFT WRIST RESTRAINTS. WILL CONTINUE TO REASSESS. NO BELONGINGS W/ PT. IV INFUSING. LEG DRSG TO LEFT LOWER LEG HAS SOME VISIBLE BLOODY DRAINAGE SEEPING THROUGH. REINFORCED DRSG.
[2022-09-27] MEDS: VANCOmycin 1250MG/NS 250ml Bag 250 ML IV SCH ×2 (11:59→23:11)
[2022-09-27] MEDS ORDERED: haloperidol lactate 5mg/ml inj IM PRN (14:05)
[2022-09-27] MEDS: LORazepam 2 mg/ml vial IV PRN ×4 (14:27→23:01)
[2022-09-27] MEDS: dextrose 5%-normal saline 1,000 ML IV SCH (14:29)
--- NOTE | 2022-09-27 15:09 | NUR ---
Restraints undone and reapplied while bed change was done. Pt voided on floor. Condom catheter placed.
--- NOTE | 2022-09-27 18:54 | NUR ---
Report given to Laura XIAO. Patient talking to self in bed with eyes closed, slight jerking movements at times. Restraints in place. Patient not safe at this time to be without restraints. No vomiting noted. Ativan being given prn.
[2022-09-27] MEDS: thiamine 100mg/ml 2ml inj. IV SCH (20:47)
[2022-09-27] MEDS ORDERED: VANCOMYCIN LEVEL IV ONE (22:30)
[2022-09-28] VITALS (9 sets, daily range): BP systolic 138–153; BP diastolic 79–114; PULSE 53–104; RESP 16–22; TEMP 97.4–99.1; O2SAT 93–100
[2022-09-28] MEDS: LORazepam 2 mg/ml vial IV PRN ×5 (00:41→23:38)
[2022-09-28] MEDS: dextrose 5%-normal saline 1,000 ML IV SCH ×3 (00:52→17:38)
[2022-09-28] MEDS: clindamycin 600mg/D5W 50ml 50 ML IV SCH ×4 (02:18→20:29)
[2022-09-28] MEDS: cefepime 2g/NS 100ml ADVANTAGE 100 ML IV SCH ×2 (03:55→16:22)
[2022-09-28 06:08] LABS: BASOPHILS # (AUTO) 0.1 X10'3 (0-0.2); MONOCYTES # (AUTO) 1.7 X10'3 (0-0.9); RED CELL DISTRIBUTION WIDTH 13.8 % (11.5-14.5)
[2022-09-28 06:10] LABS: BASOPHILS % (AUTO) 0.4 % (0-1); EOSINOPHILS # (AUTO) 0.1 X10'3 (0-0.9); EOSINOPHILS % (AUTO) 0.4 % (0-6); HEMATOCRIT 34.4 % (42.0-52.0); HEMOGLOBIN 11.7 g/dl (14.0-17.9); LYMPHOCYTES # (AUTO) 1.7 X10'3 (1.1-4.8); LYMPHOCYTES % (AUTO) 6.6 % (21-51); MEAN CORPUSCULAR HEMOGLOBIN 31.4 PG (27.0-31.0); MEAN CORPUSCULAR HGB CONC 34.1 g/dL (33.0-36.5); MEAN CORPUSCULAR VOLUME 91.9 FL (78-98); MONOCYTES % (AUTO) 6.6 % (2-12); NEUTROPHILS # (AUTO) 21.7 X10'3 (1.8-7.7); PLATELET COUNT 394 X10'3 (140-440); RED BLOOD COUNT 3.74 X10'6 (4.70-6.10)
--- NOTE | 2022-09-28 06:34 | NUR ---
Problems reprioritized. Patient report given, questions answered & plan of care reviewed with DAMEON FRANCOIS.
--- NOTE | 2022-09-28 06:36 | NUR ---
Report received from Laura XIAO
[2022-09-28 06:44] LABS: ALANINE AMINOTRANSFERASE 25 U/L (12-78); ALBUMIN 2.2 G/DL (3.4-5.0); ALBUMIN/GLOBULIN RATIO 0.4 (1.1-1.5); ALKALINE PHOSPHATASE 93 IU/L (46-116); AMYLASE 48 U/L (25-115); ANION GAP 11 (8-16); ASPARTATE AMINO TRANSFERASE 22 U/L (10-37); BILIRUBIN,TOTAL 0.3 MG/DL (0.1-1.0); BLOOD UREA NITROGEN 14 MG/DL (7-18); BUN/CREATININE RATIO 17.3 (10.0-20.0); CALCIUM 8.5 MG/DL (8.5-10.1); CHLORIDE 105 MMOL/L (99-107); CREATININE 0.81 MG/DL (0.60-1.10); GLUCOSE 115 MG/DL (70-104); LIPASE 159 U/L (73-393); MAGNESIUM 2.3 MG/DL (1.5-2.4); PHOSPHORUS 3.1 MG/DL (2.3-4.5); POTASSIUM 3.4 MMOL/L (3.5-5.1); SODIUM 141 MMOL/L (135-145); TOTAL CARBON DIOXIDE 25.5 MMOL/L (24-32); TOTAL PROTEIN 7.6 G/DL (6.4-8.2); eGFR > 90 ML/MIN
[2022-09-28 06:58] LABS: WHITE BLOOD COUNT 25.3 X10'3 (4.5-11.0)
[2022-09-28 07:02] LABS: PLATELET ESTIMATE NORMAL; TOTAL CELLS COUNTED 100
[2022-09-28 07:03] LABS: TOXIC VACUOLATION FEW
--- NOTE | 2022-09-28 07:05 | NUR ---
Message: WBC 25.3, trending down on [address]. Kimi 5441 Transaction number: [id number]
[2022-09-28] MEDS: multivitamins, therapeutics tablet PO SCH (08:00)
[2022-09-28] MEDS: folic acid 1mg/0.2ml inj IV SCH (08:39)
[2022-09-28] MEDS: thiamine 100mg/ml 2ml inj. IV SCH ×3 (08:39→20:29)
[2022-09-28] MEDS: heparin, porcine 5000 units/ml vial SQ SCH ×2 (08:40→20:29)
[2022-09-28] MEDS: K and/or MAG REPLACEMENT MC SCH ×2 (08:41→20:00)
[2022-09-28] MEDS: VANCOmycin 1250MG/NS 250ml Bag 250 ML IV SCH ×2 (11:27→20:29)
--- NOTE | 2022-09-28 12:49 | NUR ---
Message: Marvin Marcelo his K is 3.4. Can we add K to his IVF? Kimi 5441 Transaction number: [id number]
--- NOTE | 2022-09-28 15:24 | NUR ---
new IV started. Patient tolerated well
--- NOTE | 2022-09-28 17:51 | NUR ---
Message: [id number] needs restrain renewal please. I am happy to do it for you. Kimi 5441 Transaction number: [id number]
[2022-09-29] VITALS (8 sets, daily range): BP systolic 114–183; BP diastolic 65–93; PULSE 55–89; RESP 14–24; TEMP 97.4–100.1; O2SAT 93–100
[2022-09-29] MEDS: clindamycin 600mg/D5W 50ml 50 ML IV SCH ×3 (01:32→12:57)
[2022-09-29] MEDS: VANCOmycin 1250MG/NS 250ml Bag 250 ML IV SCH ×3 (03:48→19:55)
[2022-09-29] MEDS: cefepime 2g/NS 100ml ADVANTAGE 100 ML IV SCH (03:48)
--- NOTE | 2022-09-29 07:02 | NUR ---
Patient in room PCU 3024. I have received report from DAMEON COLBERT and had the opportunity to ask questions and assume patient care.
--- NOTE | 2022-09-29 07:03 | NUR ---
Problems reprioritized. Patient report given, questions answered & plan of care reviewed with DAMEON JULIEN.
[2022-09-29] MEDS: thiamine 100mg/ml 2ml inj. IV SCH ×3 (07:24→21:50)
[2022-09-29] MEDS: folic acid 1mg/0.2ml inj IV SCH (07:24)
[2022-09-29] MEDS: heparin, porcine 5000 units/ml vial SQ SCH ×2 (07:24→19:55)
[2022-09-29] MEDS: dextrose 5%-normal saline 1,000 ML IV SCH ×2 (07:26→15:39)
[2022-09-29] MEDS: multivitamins, therapeutics tablet PO SCH (07:39)
--- NOTE | 2022-09-29 07:46 | NUR ---
patient BG 64. patient able to drink x2 orange juice. will recheck BG.
[2022-09-29] MEDS: K and/or MAG REPLACEMENT MC SCH ×3 (08:00→20:00)
--- NOTE | 2022-09-29 10:26 | NUR ---
patient alert and able to follow commands and states he "normally does that" and grinned when told he was in restraints due to being aggressive and unsafe to self and others. patient states he is "feeing much better and thankful" that he had surgery on right leg. restraints taken off of patient. patient sleeping and appears to be comfortable. will continue to monitor.
[2022-09-29] MEDS ORDERED: VANCOMYCIN LEVEL IV ONE (10:30)
[2022-09-29 11:04] LABS: BASOPHILS # (AUTO) 0.1 X10'3 (0-0.2); BASOPHILS % (AUTO) 0.7 % (0-1); EOSINOPHILS # (AUTO) 0.1 X10'3 (0-0.9); EOSINOPHILS % (AUTO) 0.9 % (0-6); HEMOGLOBIN 12.9 g/dl (14.0-17.9); LYMPHOCYTES # (AUTO) 1.8 X10'3 (1.1-4.8); LYMPHOCYTES % (AUTO) 13.9 % (21-51); MEAN CORPUSCULAR HEMOGLOBIN 30.1 PG (27.0-31.0); MEAN CORPUSCULAR VOLUME 91.3 FL (78-98); MEAN PLATELET VOLUME 7.8 FL (7.4-10.4); MONOCYTES # (AUTO) 1.1 X10'3 (0-0.9); MONOCYTES % (AUTO) 8.8 % (2-12); NEUTROPHILS # (AUTO) 9.8 X10'3 (1.8-7.7); NEUTROPHILS % (AUTO) 75.7 % (42-75); PLATELET COUNT 492 X10'3 (140-440); RED BLOOD COUNT 4.28 X10'6 (4.70-6.10); RED CELL DISTRIBUTION WIDTH 13.8 % (11.5-14.5); WHITE BLOOD COUNT 12.9 X10'3 (4.5-11.0)
[2022-09-29 11:21] LABS: ALANINE AMINOTRANSFERASE 32 U/L (12-78); ALBUMIN 2.4 G/DL (3.4-5.0); ALBUMIN/GLOBULIN RATIO 0.4 (1.1-1.5); ALKALINE PHOSPHATASE 84 IU/L (46-116); AMYLASE 68 U/L (25-115); ANION GAP 11 (8-16); ASPARTATE AMINO TRANSFERASE 28 U/L (10-37); BILIRUBIN,TOTAL 0.3 MG/DL (0.1-1.0); BLOOD UREA NITROGEN 8 MG/DL (7-18); BUN/CREATININE RATIO 11.1 (10.0-20.0); CALCIUM 8.9 MG/DL (8.5-10.1); CHLORIDE 102 MMOL/L (99-107); CREATININE 0.72 MG/DL (0.60-1.10); GLUCOSE 101 MG/DL (70-104); LIPASE 240 U/L (73-393); MAGNESIUM 1.9 MG/DL (1.5-2.4); PHOSPHORUS 3.2 MG/DL (2.3-4.5); POTASSIUM 3.2 MMOL/L (3.5-5.1); SODIUM 136 MMOL/L (135-145); TOTAL CARBON DIOXIDE 23.1 MMOL/L (24-32); TOTAL PROTEIN 8.1 G/DL (6.4-8.2); VANCOMYCIN,TROUGH 16.2 UG/ML (6.0-14.0); eGFR > 90 ML/MIN
[2022-09-29] MEDS ORDERED: magnesium Cl slow-release 64mg tablet PO PRN (11:35)
[2022-09-29] MEDS ORDERED: magnesium 4gm in 100ml NS 100 ML IV PRN (11:35)
[2022-09-29] MEDS ORDERED: potassium Cl 20 mEq SR tablet PO PRN (11:35)
[2022-09-29] MEDS ORDERED: potassium Cl 40MEQ/1/2NS 520ml 520 ML IV PRN (11:35)
[2022-09-29] MEDS ORDERED: magnesium 2GM in 50ml NS 50 ML IV PRN (11:35)
[2022-09-29] MEDS: potassium Cl 20 mEq SR tablet PO PRN ×3 (12:57→21:50)
--- NOTE | 2022-09-29 15:41 | NUR ---
WOC note: Wound consult received. Wound team did not see pt today as NOY Martell alerted wound care team she would be seeing him and completing wound care. He was apparently tied up and having withdrawals yesterday and was unable to have packing completed by nursing staff. MD aware. Plan to see tomorrow to open to services.
--- NOTE | 2022-09-29 18:21 | NUR ---
Problems reprioritized. Patient report given, questions answered & plan of care reviewed with DAMEON Mcclain.
[2022-09-29] MEDS: clindamycin 150mg capsule PO SCH (19:54)
[2022-09-30] MEDS: clindamycin 150mg capsule PO SCH ×3 (01:47→13:04)
[2022-09-30 02:00] VITALS: BP 137/75; PULSE 72; RESP 18; TEMP 98.5; O2SAT 97
[2022-09-30] MEDS: dextrose 5%-normal saline 1,000 ML IV SCH ×2 (02:10→11:57)
[2022-09-30] MEDS: VANCOmycin 1250MG/NS 250ml Bag 250 ML IV SCH ×2 (02:44→11:49)
[2022-09-30 06:00] VITALS: BP 131/80; PULSE 57; RESP 22; TEMP 98.5; O2SAT 95
--- NOTE | 2022-09-30 06:51 | NUR ---
Problems reprioritized. Patient report given, questions answered & plan of care reviewed with Kitty
[2022-09-30 06:52] LABS: BASOPHILS % (AUTO) 0.3 % (0-1); EOSINOPHILS # (AUTO) 0.2 X10'3 (0-0.9); EOSINOPHILS % (AUTO) 1.7 % (0-6); HEMATOCRIT 37.5 % (42.0-52.0); HEMOGLOBIN 12.5 g/dl (14.0-17.9); LYMPHOCYTES # (AUTO) 2.4 X10'3 (1.1-4.8); LYMPHOCYTES % (AUTO) 16.6 % (21-51); MEAN CORPUSCULAR HEMOGLOBIN 30.2 PG (27.0-31.0); MEAN CORPUSCULAR HGB CONC 33.4 g/dL (33.0-36.5); MEAN CORPUSCULAR VOLUME 90.5 FL (78-98); MEAN PLATELET VOLUME 7.1 FL (7.4-10.4); MONOCYTES # (AUTO) 1.3 X10'3 (0-0.9); MONOCYTES % (AUTO) 8.7 % (2-12); NEUTROPHILS # (AUTO) 10.5 X10'3 (1.8-7.7); NEUTROPHILS % (AUTO) 72.7 % (42-75); PLATELET COUNT 520 X10'3 (140-440); RED BLOOD COUNT 4.14 X10'6 (4.70-6.10); RED CELL DISTRIBUTION WIDTH 13.9 % (11.5-14.5); WHITE BLOOD COUNT 14.5 X10'3 (4.5-11.0)
[2022-09-30 07:12] LABS: ALANINE AMINOTRANSFERASE 31 U/L (12-78); ALBUMIN 2.2 G/DL (3.4-5.0); ALBUMIN/GLOBULIN RATIO 0.5 (1.1-1.5); ALKALINE PHOSPHATASE 78 IU/L (46-116); AMYLASE 82 U/L (25-115); ANION GAP 9 (8-16); ASPARTATE AMINO TRANSFERASE 22 U/L (10-37); BILIRUBIN,TOTAL 0.3 MG/DL (0.1-1.0); BLOOD UREA NITROGEN 15 MG/DL (7-18); CALCIUM 8.2 MG/DL (8.5-10.1); CHLORIDE 105 MMOL/L (99-107); CREATININE 0.79 MG/DL (0.60-1.10); GLUCOSE 102 MG/DL (70-104); LIPASE 313 U/L (73-393); MAGNESIUM 1.7 MG/DL (1.5-2.4); PHOSPHORUS 3.4 MG/DL (2.3-4.5); POTASSIUM 3.8 MMOL/L (3.5-5.1); SODIUM 136 MMOL/L (135-145); TOTAL CARBON DIOXIDE 21.8 MMOL/L (24-32); eGFR > 90 ML/MIN
[2022-09-30 07:30] LABS: HIV ANTIBODY 1&2 RAPID NON-REACTIVE (Neg)
[2022-09-30 08:00] VITALS: RESP 18; O2SAT 93
[2022-09-30] MEDS: thiamine 100mg/ml 2ml inj. IV SCH ×2 (08:23→13:00)
[2022-09-30] MEDS: multivitamins, therapeutics tablet PO SCH (08:23)
[2022-09-30] MEDS: K and/or MAG REPLACEMENT MC SCH ×2 (08:24)
[2022-09-30] MEDS: heparin, porcine 5000 units/ml vial SQ SCH (08:25)
[2022-09-30] MEDS: folic acid 1mg/0.2ml inj IV SCH (08:25)
[2022-09-30 11:00] VITALS: BP 116/62; PULSE 62; RESP 16; TEMP 98; O2SAT 100
--- NOTE | 2022-09-30 13:19 | NUR ---
Initial: Pt admit for sepsis with left leg cellulitis/abscess and MARISSA with mild hyponatremia and hypokalemia. Per EMR pt POD #3 s/p I&D of left leg. Pt s/p f/u BSS this morning with [facility] regular diet, previously on an SB6 diet with thin liquids per [facility] 09/29. Tox screen positive for fentanyl and amphetamines on admit, likely impacting initial PO intake documented with average 19% PO intake of the first four meals however up to average 83% PO intake of the three most recent meals. IF pt continues with this average intake it will meet 100% estimated energy needs and 75% estimated protein needs. Noted pt receiving D5NS at 100 mL/hr providing 408 kcal/day. LBM 09/30 per EMR. Will continue to follow closely and monitor need for nutrition intervention pending further trends in PO intake. Recommendations: 1) Continue regular diet 2) Monitor need for ONS/additional protein 3) Continue routine Thiamine, Folic acid, and MVI 4) Bowel care per rx 5) Scaled weight this admit; subsequent weekly scaled weights Addendum: 09/30/22 at [address] Amended: Links added.
--- NOTE | 2022-09-30 13:47 | NUR ---
Pt upset demanding to leave the hospital. Pt encouraged with max education to remain in the hospital to treat his infection. Pt declined to stay stating "I want to go find my girlfriend." Pt encouraged to return to a hospital if he has s/sx of infection and educated on what those s/sx would be. Pt signed AMA paperwork with an understanding of what that means to leave the hospital against medical advice. Pt left on foot with crutches. This promotion writer removed both PIVs with cannula intact.
== END 2022-09-30 13:48 | disposition left against medical advice (07) | DRG 710 ==
LOC: ER 22:05 → ED HOLD 09-26 01:25 → PCU 3S 09-26 05:00
PROVIDERS: ADMIT Internal Medicine; ATTEND Family Medicine
PROC: BQ2S1ZZ Computerized Tomography (CT Scan) of Left Lower Extremity using Low Osmolar Contrast (ICD-10-PCS; 2022-09-26)
PROC: 0QBH0ZZ Excision of Left Tibia, Open Approach (ICD-10-PCS; principal; 2022-09-27 09:42)
DX: A41.9 Sepsis, unspecified organism (principal); N17.9 Acute kidney failure, unspecified; L02.416 Cutaneous abscess of left lower limb; E87.1 Hypo-osmolality and hyponatremia; L03.116 Cellulitis of left lower limb; Z53.29 Procedure and treatment not carried out because of patient's decision for other reasons; E87.6 Hypokalemia; B95.4 Other streptococcus as the cause of diseases classified elsewhere; B95.7 Other staphylococcus as the cause of diseases classified elsewhere; F15.10 Other stimulant abuse, uncomplicated; R45.1 Restlessness and agitation; F32.A Depression, unspecified; I10 Essential (primary) hypertension; Z59.00 Homelessness unspecified; Z79.899 Other long term (current) drug therapy
CPT/HCPCS: 36415; 71045; 73701; 74018; 80053; 80202; 80305; 81001; 82150; 82948; 83605; 83690; 83735; 84100; 84132; 84145; 85007; 85025; 85610; 86703; 87040; 87070; 87075; 87077; 87081; 87186; 92508; 92616; 97116; 97161; 97530; 99285; A4349; A4618; A6222; A6250; A6253; A6266; A6407; A6446; A6449; A6455; A7000; G0378; J0131; J0692; J1100; J1644; J1885; J2060; J2175; J2250; J2270; J2274; J2405; J2543; J2704; J3010; J3370; J3411; J3490; J7030; J7042; J7070; Q9967

== ENCOUNTER 2022-11-09 00:54 | Emergency (ER) | payer MEDICAID ==
[~2022-11-09] VITALS: Ht 182.9 cm; Wt 86.4 kg
[~2022-11-09 00:54] MED LIST changes: -ALBU8.5H17 IH; -DOCU-169 PO; -GUAN1TAB16 PO; -HYDR25SU32 RC; +NO HOME MEDS
[2022-11-09 01:49] VITALS: BP 153/95; PULSE 83; RESP 18; TEMP 97.6; O2SAT 98
== END 2022-11-09 02:51 ==
LOC: ER 00:55
DX: M79.89 Other specified soft tissue disorders (principal)
CPT/HCPCS: 99283

== ENCOUNTER 2023-06-04 10:25 | Emergency (ER) | payer MEDICAID ==
[~2023-06-04] VITALS: Ht 188 cm; Wt 93.2 kg
[2023-06-04] MEDS: naloxone 2mg/2ml inj IV STA (10:46)
[2023-06-04 10:48] VITALS: TEMP 98.3
[2023-06-04 11:09] LABS: BASOPHILS # (AUTO) 0.1 X10'3 (0-0.2); BASOPHILS % (AUTO) 0.8 % (0-1); EOSINOPHILS # (AUTO) 0.2 X10'3 (0-0.9); EOSINOPHILS % (AUTO) 2.1 % (0-6); HEMATOCRIT 41.4 % (42.0-52.0); LYMPHOCYTES # (AUTO) 1.6 X10'3 (1.1-4.8); LYMPHOCYTES % (AUTO) 21.2 % (21-51); MEAN CORPUSCULAR HEMOGLOBIN 31.1 PG (27.0-31.0); MEAN CORPUSCULAR HGB CONC 33.8 g/dL (33.0-36.5); MEAN PLATELET VOLUME 7.5 FL (7.4-10.4); MONOCYTES # (AUTO) 0.8 X10'3 (0-0.9); MONOCYTES % (AUTO) 10.9 % (2-12); NEUTROPHILS # (AUTO) 4.8 X10'3 (1.8-7.7); PLATELET COUNT 336 X10'3 (140-440); RED CELL DISTRIBUTION WIDTH 15.1 % (11.5-14.5); WHITE BLOOD COUNT 7.4 X10'3 (4.5-11.0)
[2023-06-04 11:29] LABS: ALBUMIN 3.8 G/DL (3.4-5.0); ANION GAP 9 (8-16); BLOOD UREA NITROGEN 14 MG/DL (7-18); BUN/CREATININE RATIO 13.9 (10.0-20.0); CHLORIDE 105 MMOL/L (99-107); CREATININE 1.01 MG/DL (0.60-1.10); GLUCOSE 95 MG/DL (70-104); POTASSIUM 3.9 MMOL/L (3.5-5.1); PRO BRAIN NATRIURETIC PEPTIDE < 30 PG/ML (0-125); SODIUM 144 MMOL/L (135-145); TOTAL CARBON DIOXIDE 30.3 MMOL/L (24-32); eCRCL 125 ML/MIN; eGFR 87 ML/MIN
[2023-06-04 12:07] LABS: BILIRUBIN,URINE NEGATIVE (Neg); CLARITY,URINE CLEAR (Clear); COLOR,URINE YELLOW (Yellow); GLUCOSE, URINE NEGATIVE (Neg); KETONES,URINE NEGATIVE (Neg); LEUKOCYTE ESTERASE ,URINE NEGATIVE (Neg); NITRITES, URINE NEGATIVE (Neg); OCCULT BLOOD,URINE NEGATIVE (Neg); PROTEIN,URINE TRACE mg/dl (Neg); UROBILINOGEN,URINE 0.2 E.U/dL (0.2-1.0)
[2023-06-04 12:12] LABS: URINE AMPHETAMINE SCREEN POSITIVE (Neg); URINE BARBITUATE SCREEN NEGATIVE (Neg); URINE BENZODIAZEPINES SCREEN NEGATIVE (Neg); URINE CANNABINOID SCREEN NEGATIVE (Neg); URINE COCAINE SCREEN NEGATIVE (Neg); URINE METHADONE SCREEN NEGATIVE (Neg); URINE OPIATE SCREEN NEGATIVE (Neg); URINE PHENCYCLIDINE SCREEN NEGATIVE (Neg)
[2023-06-04 12:23] LABS: UA COLLECTION TYPE STRAIGHT CATH; WBC,URINE 0-4 /HPF (0-4)
[2023-06-04 12:24] LABS: BACTERIA,URINE NONE SEEN /HPF (Neg); MUCUS STRANDS FEW /LPF (Neg); RBC,URINE 0-2 /HPF (0-2); RENAL CELLS, URINE FEW /HPF; SQUAMOUS EPITHELIAL CELL,UR FEW /LPF (FEW)
[2023-06-04 17:30] VITALS: BP 128/77; PULSE 87; RESP 18; O2SAT 95
== END 2023-06-04 13:30 | disposition home or self-care (01) ==
LOC: ER 10:26
DX: T40.412A Poisoning by fentanyl or fentanyl analogs, intentional self-harm, initial encounter (principal); F15.90 Other stimulant use, unspecified, uncomplicated; I10 Essential (primary) hypertension; F32.A Depression, unspecified; F11.90 Opioid use, unspecified, uncomplicated; Y92.89 Other specified places as the place of occurrence of the external cause
CPT/HCPCS: 36415; 71045; 80048; 80305; 81001; 83880; 84484; 85025; 93005; 96374; 99285; J2310; C1758